=== PATIENT | female | born 1945 | race Hispanic/Latino ===

== ENCOUNTER 2018-01-11 15:32 | Emergency (ER) | payer OTHER ==
--- OUTSIDE RECORDS SUMMARY | 2018-01-11 15:34 | XMS REPORT ---
:1945 Author Organization e[employer] Care Team Providers Name Role Phone Dwain Plummer Provider Role Unavailable Allergies No Known Allergies Problems Problem Type Condition Code Onset Dates Condition Status Problem Osteoarthritis, multiple sites M15.9 Active Problem Unspecified rotator cuff tear or M75.100 Active rupture of unspecified shoulder, not specified as traumatic Problem Non-alcoholic fatty liver disease K76.0 Active Problem Hyperglycemia R73.9 Active Problem Carpal tunnel syndrome G56.00 Active Problem Hypertension I10 Active Problem Gastroesophageal reflux disease K21.9 Active Problem 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 substance or known physiological condition Problem Hypertriglyceridemia E78.1 Active Problem Hypokalemia E87.6 Active Assessment Hypertriglyceridemia E78.1 Active Assessment Hypertension I10 Active Assessment Osteoarthritis, multiple sites M15.9 Active Problem Allergic rhinitis, unspecified J30.9 Active Assessment Hyperglycemia R73.9 Active Problem Body mass index (BMI) of 40.0-44.9 Z68.41 Active in adult Assessment Non-alcoholic fatty liver disease K76.0 Active Problem Symptomatic postsurgical menopause E89.41 Active Medications Medication Code Code Instructions Start End Status Dosage System Date Date Losartan [facility] 49221905879 100-12.5 MG Active 1 tablet Potassium-HCTZ Oral Once a day Clarinex-D [address] [facility] 86478304482 2.5-120 MG MayAugust 04, Active 1 tablet Hour Orally every 12 2017 2018 hrs Fluticasone ND 62061450106 50 MCG/ACT Active 1 spray in Propionate Nasally Once a each day nostril Pantoprazole ND 05696943018 40 MG Orally Active 1 tablet Sodium Once a day ProAir HFA [facility] 21417012607 108 (90 Base) Active 2 puffs as MCG/ACT needed Inhalation every 6 hrs Carvedilol ND 49643910994 3.125 MG Oral Active 1 tab two times a day Metformin HCl ND 47659284561 500 MG Orally Active 1 tablet once a day with meals Potassium [facility] 94422713368 10 MEQ Orally Sept Active 1 tablet Chloride Vane ER Once a day 17, with food 2017 Oseltamivir [facility] 14904103034 75 MG Oral Active not Phosphate defined Belsomra [facility] 97755528584 5 MG Orally Active 1 tablet Once a day at bedtime as needed Cetirizine HCl [facility] 14576831199 10 MG Orally Active 1 tablet Once a day Results No Known Results Summary Purpose eClinicalWorks Submission
--- OUTSIDE RECORDS SUMMARY | 2018-01-11 15:34 | XMS REPORT ---
:1945 [email or web address] Care Team Providers Name Role Phone Dwain [...] E78.1 Active Problem Hypokalemia E87.6 Active Assessment Body mass index (BMI) of 40.0-44.9 Z68.41 Active in adult Assessment Hypertension I10 Active Assessment Allergic rhinitis, unspecified J30.9 Active Assessment Postnasal drip R09.82 Active Assessment Non-alcoholic fatty liver disease K76.0 Active Problem Allergic rhinitis, unspecified J30.9 Active Assessment Hypertriglyceridemia E78.1 Active Problem Body mass index (BMI) of 40.0-44.9 Z68.41 Active in adult Assessment Hyperglycemia R73.9 Active Problem Symptomatic postsurgical menopause E89.41 Active Medications Medication Code Code Instructions Start End Date Status Dosage System Date Potassium [facility] 56706530949 10 MEQ Orally Dec 02, Active 1 tablet Chloride Vane Once a day 2017 with food ER Metformin HCl ND 80030284191 500 MG Orally Active 1 tablet once a day with meals Pantoprazole ND 43076046220 40 MG Orally Active 1 tablet Sodium Once a day Carvedilol [facility] 25696848928 3.125 MG Oral Active 1 tab two times a day Belsomra [facility] 08905040612 5 MG Orally Active 1 tablet Once a day at bedtime as needed Cetirizine HCl ND 23069363947 10 MG Orally Active 1 tablet Once a day Losartan [facility] 43933643870 100-12.5 MG Active 1 tablet Potassium-HCTZ Oral Once a day ProAir HFA [facility] 37757742565 108 (90 Base) Active 2 puffs MCG/ACT as needed Inhalation every 6 hrs Klor-Con M10 [facility] 43646848582 10 MEQ May Inactive 1 EACH 2017 ONCE A DAY ORALLY Clarinex-D 12 [facility] 29331348258 2.5-120 MG MayAugust 04, Active 1 tablet Hour Orally every 12 2017 2018 hrs Oseltamivir [facility] 42117948714 75 MG Oral Active not Phosphate defined Fluticasone [facility] 59685050548 50 MCG/ACT May Active 1 spray Propionate Nasally Once a 2017 in each day nostril Results No Known Results Summary Purpose eClinicalWorks Submission
--- NOTE | 2018-01-11 16:02 | EDPHYS ---
Physician Documentation [facility] Name: Hortencia Freeman Age: 72 yrs Sex: Female : 1945 Arrival Date: 01/11/2018 Time: 15:34 Bed 4 Private MD: out of town, doctor ED Physician Jeff Shay HPI: 01/11 15:52 This 72 yrs old Female presents to ER via Ambulatory with complaints of Eye jr8 Injury. 15:52 The patient is experiencing pain. Onset: The symptoms/episode began/occurred acutely, jr8 today. Duration: the symptoms are continuous. Aggravated by nothing. Alleviated by nothing. Associated signs and symptoms: Pertinent positives: None. Patient wears glasses. Severity of symptoms: At their worst the symptoms were mild in the emergency department the symptoms are unchanged. The patient has not experienced similar symptoms in the past. The patient has not recently seen a physician. Patient stated that while shopping was accidently hit in left eye by clothes wrack from a little girl pushing it around. Denies falling backwards or hitting head or neck. No other trauma. Stated that it hit lower eye region but did not get her actual eyeball . Historical: - Allergies: 15:42 No Known Allergies; aj - Home Meds: 15:42 Metoprolol Tartrate Oral [Active]; Metformin Oral [Active]; aj - PMHx: 15:42 acid reflux; Diabetes - NIDDM; Hypertension; aj - PSHx: 15:42 Appendectomy; Hysterectomy; Carpal Tunnel Repair; shoulder; aj - Immunization history:: Adult Immunizations up to date. - Social history:: Smoking status: Patient/guardian denies using tobacco. - Ebola Screening: : Patient negative for fever greater than or equal to 101.5 degrees Fahrenheit, and additional compatible Ebola Virus Disease symptoms Patient denies exposure to infectious person Patient denies travel to an Ebola-affected area in the 21 days before illness onset No symptoms or risks identified at this time. ROS: 15:52 ENT: Negative for injury, pain, and discharge, Neck: Negative for injury, pain, and jr8 swelling, Cardiovascular: Negative for chest pain, palpitations, and edema, Respiratory: Negative for shortness of breath, cough, wheezing, and pleuritic chest pain, Abdomen/GI: Negative for abdominal pain, nausea, vomiting, diarrhea, and constipation, Back: Negative for injury and pain, MS/Extremity: Negative for injury and deformity, Skin: Negative for injury, rash, and discoloration, Neuro: Negative for headache, weakness, numbness, tingling, and seizure. 15:52 Eyes: Positive for pain, of the left lower eyelid. Exam: 15:58 Visual Acuity: I have reviewed the nursing documentation. jr8 15:58 Head/Face: Normocephalic, atraumatic. ENT: Nares patent. No nasal discharge, no septal abnormalities noted. Tympanic membranes are normal and external auditory canals are clear. Oropharynx with no redness, swelling, or masses, exudates, or evidence of obstruction, uvula midline. Mucous membranes moist. Neck: Trachea midline, no thyromegaly or masses palpated, and no cervical lymphadenopathy. Supple, full range of motion without nuchal rigidity, or vertebral point tenderness. No Meningismus. Cardiovascular: Regular rate and rhythm with a normal S1 and S2. No gallops, murmurs, or rubs. Normal PMI, no JVD. No pulse deficits. Respiratory: Lungs have equal breath sounds bilaterally, clear to auscultation and percussion. No rales, rhonchi or wheezes noted. No increased work of breathing, no retractions or nasal flaring. Abdomen/GI: Soft, non-tender, with normal bowel sounds. No distension or tympany. No guarding or rebound. No evidence of tenderness throughout. Back: No spinal tenderness. No costovertebral tenderness. Full range of motion. Skin: Warm, dry with normal turgor. Normal color with no rashes, no lesions, and no evidence of cellulitis. MS/ Extremity: Pulses equal, no cyanosis. Neurovascular intact. Full, normal range of motion. Neuro: Awake and alert, GCS 15, oriented to person, place, time, and situation. Cranial nerves II-XII grossly intact. Motor strength 5/5 in all extremities. Sensory grossly intact. Cerebellar exam normal. Normal gait. 15:58 Eyes: Periorbital structures: ecchymosis, that is mild, on the left lower eyelid, Pupils: equal, round, and reactive to light and accomodation, Extraocular movements: intact throughout, Conjunctiva: normal, Corneas: are normal, no evidence of abrasion, no foreign body, Sclera: no appreciated abnormality, Anterior chamber: normal, no hyphema, Lids and lashes: appear normal, Examination of the other eye reveals no obvious gross abnormality. Vital Signs: 15:42 BP 163 / 84; Pulse 76; Resp 16; Temp 98.2; Pulse Ox 97% on R/A; Weight 101.6 kg; Height aj 5 ft. 4 in. (162.56 cm); 15:42 Body Mass Index 38.45 (101.60 kg, 162.56 cm) Visual Acuity: 15:58 Left Eye Visual acuity 20/70, Pupil size 3 mm, Normal, React To Light; Right Eye Visual jb1 acuity 20/70, Pupil size 3 mm, Normal, React To Light; Without Lenses; MDM: 15:44 Patient medically screened. jr8 15:58 Data reviewed: vital signs, nurses notes, and as a result, I will discharge patient. jr8 Data interpreted: Pulse oximetry: on room air is 97 %. Interpretation: normal. Counseling: I had a detailed discussion with the patient and/or guardian regarding: the historical points, exam findings, and any diagnostic results supporting the discharge/admit diagnosis, the need for outpatient follow up, an opthalmologist, to return to the emergency department if symptoms worsen or persist or if there are any questions or concerns that arise at home. Administered Medications: No medications were administered Disposition: 18:01 Co-signature as Attending Physician, Jeff Shay MD. Disposition: 01/11/18 16:01 Discharged to Home. Impression: Contusion left infraorbital region . - Condition is Stable. - Discharge Instructions: Eye Contusion, Facial or Scalp Contusion. - Medication Reconciliation Form, Thank You Letter, Antibiotic Education, Prescription Opioid Use form. - Follow up: Ayad Jamison MD; When: As needed; Reason: If symptoms return, Recheck today's complaints, Continuance of care, Re-evaluation by your physician. - Problem is new. - Symptoms have improved. Signatures: Taina Prado RN RN aj Roszak, Josh, PA PA jr8 Bahman Hilton RN RN jl7 Jeff Shay MD MD Corrections: (The following items were deleted from the chart) 16:43 16:01 01/11/2018 16:01 Discharged to Home. Impression: Contusion left infraorbital jl7 region . Condition is Stable. Forms are Medication Reconciliation Form, Thank You Letter, Antibiotic Education, Prescription Opioid Use. Follow up: Ayad Jamison; When: As needed; Reason: If symptoms return, Recheck today's complaints, Continuance of care, Re-evaluation by your physician. Problem is new. Symptoms have improved. jr8
--- NOTE | 2018-01-11 16:02 | ER ---
Nurse's Notes [facility] Name: Hortencia Freeman Age: 72 yrs Sex: Female : 1945 Arrival Date: 01/11/2018 Time: 15:34 Bed 4 Private MD: out of town, doctor Diagnosis: Contusion left infraorbital region Presentation: 01/11 15:40 Presenting complaint: Patient states: Hit in left eye with metal rack at 1500 today aj while at [employer]. Denies LOC, reports blurred vision in left eye. Bruising noted. Reports minor pain. Transition of care: patient was not received from another setting of care. Mechanism of Injury: blunt trauma. Onset of symptoms was January 11, 2018. Risk Assessment: Do you want to hurt yourself or someone else? Patient reports no desire to harm self or others. Initial Sepsis Screen: Does the patient meet any 2 criteria? No. Patient's initial sepsis screen is negative. Does the patient have a suspected source of infection? No. Patient's initial sepsis screen is negative. Care prior to arrival: None. 15:40 Method Of Arrival: Ambulatory 15:40 Acuity: PROMISE 2 Triage Assessment: 15:42 General: Appears in no apparent distress. comfortable, Behavior is calm, cooperative, aj appropriate for age. Pain: Complains of pain in left eye. EENT: Eyes bruising to left lower lid. Neuro: Level of Consciousness is awake, alert, obeys commands, Oriented to person, place, time, situation, Appropriate for age. Respiratory: Airway is patent Respiratory effort is even, unlabored, Respiratory pattern is regular, symmetrical. Derm: Skin is intact, is healthy with good turgor, Skin is pink, warm \T\ dry. normal. Historical: - Allergies: 15:42 No Known Allergies; aj - Home Meds: 15:42 Metoprolol Tartrate Oral [Active]; Metformin Oral [Active]; aj - PMHx: 15:42 acid reflux; Diabetes - NIDDM; Hypertension; aj - PSHx: 15:42 Appendectomy; Hysterectomy; Carpal Tunnel Repair; shoulder; aj - Immunization history:: Adult Immunizations up to date. - Social history:: Smoking status: Patient/guardian denies using tobacco. - Ebola Screening: : Patient negative for fever greater than or equal to 101.5 degrees Fahrenheit, and additional compatible Ebola Virus Disease symptoms Patient denies exposure to infectious person Patient denies travel to an Ebola-affected area in the 21 days before illness onset No symptoms or risks identified at this time. Screenin:15 Abuse screen: Denies threats or abuse. Denies injuries from another. Nutritional jl7 screening: No deficits noted. Tuberculosis screening: No symptoms or risk factors identified. Fall Risk None identified. Assessment: 16:15 General: Appears in no apparent distress. uncomfortable, Behavior is calm, cooperative. jl7 Pain: Complains of pain in left eye. Neuro: Level of Consciousness is awake, alert, obeys commands, Oriented to person, place, time, situation. Cardiovascular: Patient's skin is warm and dry. Respiratory: Airway is patent Respiratory effort is even, unlabored, Respiratory pattern is regular, symmetrical. EENT: Sclera/Cornea are reddened in left eye. Vital Signs: 15:42 BP 163 / 84; Pulse 76; Resp 16; Temp 98.2; Pulse Ox 97% on R/A; Weight 101.6 kg; Height aj 5 ft. 4 in. (162.56 cm); 15:42 Body Mass Index 38.45 (101.60 kg, 162.56 cm) aj Visual Acuity: 15:58 Left Eye Visual acuity 20/70, Pupil size 3 mm, Normal, React To Light; Right Eye Visual jb1 acuity 20/70, Pupil size 3 mm, Normal, React To Light; Without Lenses; ED Course: 15:34 Patient arrived in ED. mr 15:34 out of town, doctor is Private Physician. mr 15:41 Triage completed. aj 15:42 Arm band placed on right wrist. Patient placed in an exam room. aj 15:44 Mynor Jiménez PA is PHCP. jr8 15:44 Jeff Shay MD is Attending Physician. jr8 16:01 Ayad Jamison MD is Referral Physician. jr8 16:15 Patient has correct armband on for positive identification. Bed in low position. Call jl7 light in reach. Side rails up X 1. 16:37 Bahman Hilton, DONNA is Primary Nurse. jl7 16:42 No provider procedures requiring assistance completed. Patient did not have IV access jl7 during this emergency room visit. Administered Medications: No medications were administered Outcome: 16:01 Discharge ordered by . radha 16:42 Discharged to home ambulatory. jl7 16:42 Condition: stable 16:42 Discharge instructions given to patient, Instructed on discharge instructions, follow up and referral plans. Demonstrated understanding of instructions, follow-up care. 16:43 Patient left the ED. jl7 Signatures: Boni Siddiqui jb1 Taina Prado RN RN aj Rivera, Mary mr Roszak, Josh, PA PA jr8 Bahman Hilton RN RN jl7
== END 2018-01-11 16:43 | disposition home or self-care (01) ==
LOC: ER 15:32
DX: S00.12XA Contusion of left eyelid and periocular area, initial encounter (principal); W22.8XXA Striking against or struck by other objects, initial encounter; Y93.89 Activity, other specified; Y92.9 Unspecified place or not applicable; I10 Essential (primary) hypertension; E11.9 Type 2 diabetes mellitus without complications
CPT/HCPCS: 99282

== ENCOUNTER 2022-04-24 11:21 | Emergency (ER) | payer OTHER ==
--- OUTSIDE RECORDS SUMMARY | 2022-04-24 11:26 | XMS REPORT | Continuity of Care Document ---
:1945 Author Organization [facility] t Address [address] [place] [address] Care Team Providers Name Role Phone Waldemar Gillette Attending Clinician Unavailable Valdo Vivas Attending Clinician Unavailable Mara Driver Attending Clinician Unavailable Payers Payer Name Policy Type Policy Number Effective Date Expiration Date S ource [facility] [id number] 2010 Common 00:00:00 [facility] [place] [address] [id number] [facility] [place] [address] [id number] Common [facility] MEDICARE NOVITAS [id number] 2010 Common 00:00:00 Spirit [facility] MEDICARE NOVITAS [id number] 2010 Common 00:00:00 [facility] [place] [address] [id number] Common [facility] [place] Problems Condition Condition Condition Status Onset Resolution Last Treating Co mments Source Name Details Category Date Date Treatment Clinician Date [id number] Leukocytos Problem Co mmon is, Spirit unspecifie - CHI d type [facility] [id number] Acute Problem Common left-sided Spirit low back - CHI pain with St leftsided [facility] [id number] Hypercalce Problem Com mon benny Spirit - [facility] Gastroesop Gastroesop Problem C elzbieta hageal hageal Spirit reflux reflux - CHI disease disease [facility] Psychophys Other Problem Commo n iologic insomnia Spirit insomnia not due to - CH I a [facility] or known [facility] physiolog[facility] Center jb condition Hypertrigl Hypertrigl Problem C elzbieta yceridemia yceridemia loree [facility] Hypokalemi Hypokalemi Problem C omemi a a Spirit - [facility] Hyperglyce Hyperglyce Problem C ommon benny benny Spirit [facility] Carpal Carpal Problem Common tunnel tunnel Spirit syndrome syndrome - [facility] [id number] Other Problem Common chronic Spirit pain [facility] 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 unspecifie Medica d [facility] shoulder, not specified as traumatic [id number] Pain in Problem Common right knee [facility] [id number] Pain in Problem Comm on left knee [facility] [id number] Peripheral Problem Co mmon edema [facility] Abnormal Abnormal Problem Commo n mammogram mammogram Sp[facility] Allergies, Adverse Reactions, Alerts This patient has no known allergies or adverse reactions. Social History Social Habit Start Date Stop Date Quantity Comments Source History of Tobacco Use Co mmon [facility] Sex Assigned At Com mon [facility] Smoking Status Start Date Stop Date Source Never Smoker Common [facility] Medications Ordered Filled Start Stop Current Ordering Indication Dosage Frequency Signature Comments Components Source Medication Medication Date Date Medication? Clinician (SIG) Name Name Ketorolac Ketorolac 2022-0 No 60mg Com mon 15mg 15mg 03-22 00:00: - [facility] Ketorolac Ketorolac 2022-0 No 60mg Com mon 15mg 15mg 03-22 00:00: - [facility] Ketorolac Ketorolac 2022-0 No 60mg Com mon 15mg 15mg 03-22 00:00: - [facility] 2021-03 No 40mg Common (Triamcinol (Triamcinol 1-10 S pirit one) one) 00:00: - [facility] 2021-03 No 40mg Common (Triamcinol (Triamcinol 1-10 S pirit one) one) 00:00: - [facility] 2021-03 No 40mg Common (Triamcinol (Triamcinol 1-10 S pirit one) one) 00:00: - [facility] No 40mg Common (Triamcinol (Triamcinol 1-10 S pirit one) one) 00:00: - [facility] 2021-03 No 40mg Common (Triamcinol (Triamcinol 1-10 S pirit one) one) 00:00: - [facility] Citalopram Citalopram 2020-03 No 1{table QD Citalopram Hydrobromid Hydrobromid 2-06 t} Hydrobromi e 10 MG e 10 MG 00:00: de 10 MG 00 Citalopram Citalopram 1 No 1{table QD Citalopram Hydrobromid Hydrobromid 2-06 t} Hydrobromi e 10 MG e 10 MG 00:00: de 10 MG 00 Cyclobenzap Cyclobenzap 2020-0 No 1{table QD Cyclobenza rine HCl 5 rine HCl 5 8-25 t_at_be jose HCl MG MG 00:00: dtime_a 5 MG 00 s_neede d} Cyclobenzap Cyclobenzap 2020-0 No 1{table QD Cyclobenza rine HCl 5 rine HCl 5 8-25 t_at_be jose HCl MG MG 00:00: dtime_a 5 MG 00 s_neede d} Cyclobenzap Cyclobenzap 2020-0 No 1{table QD Cyclobenza rine HCl 5 rine HCl 5 8-25 t_at_be jose HCl MG MG 00:00: dtime_a 5 MG 00 s_neede d} Cyclobenzap Cyclobenzap 2020-0 No 1{table QD rine HCl 5 rine HCl 5 8-25 t_at_be MG MG 00:00: dtime_a 00 s_neede d} Cyclobenzap Cyclobenzap 2020-0 No 1{table QD Cyclobenza rine HCl 5 rine HCl 5 8-25 t_at_be jose HCl MG MG 00:00: dtime_a 5 MG 00 s_neede d} Cyclobenzap Cyclobenzap 2020-0 No 1{table QD Cyclobenza rine HCl 5 rine HCl 5 8-25 t_at_be jose HCl MG MG 00:00: dtime_a 5 MG 00 s_neede d} Kenalog Kenalog 2020-0 No 40mg Common (Triamcinol (Triamcinol 8-25 S pirit one) one) 00:00: - CHI 00 [facility] Cyclobenzap Cyclobenzap 2020-0 No 1{table QD Cyclobenza rine HCl 5 rine HCl 5 8-25 t_at_be jose HCl MG MG 00:00: dtime_a 5 MG 00 s_neede d} Kenalog Kenalog 0 No 40mg Common (Triamcinol (Triamcinol 8-25 S pirit one) one) 00:00: - CHI 00 [facility] Cyclobenzap Cyclobenzap No 1{table QD Cyclobenza rine HCl 5 rine HCl 5 8-25 t_at_be jose HCl MG MG 00:00: dtime_a 5 MG 00 s_neede d} Kenalog Kenalog No 40mg Common (Triamcinol (Triamcinol 8-25 S pirit one) one) 00:00: - CHI 00 [facility] Cyclobenzap Cyclobenzap No 1{table QD Cyclobenza rine HCl 5 rine HCl 5 8-25 t_at_be jose HCl MG MG 00:00: dtime_a 5 MG 00 s_neede d} Kenalog Kenalog 0 No 40mg Common (Triamcinol (Triamcinol 8-25 S pirit one) one) 00:00: - CHI 00 [facility] Cyclobenzap Cyclobenzap No 1{table QD Cyclobenza rine HCl 5 rine HCl 5 8-25 t_at_be jose HCl MG MG 00:00: dtime_a 5 MG 00 s_neede d} Kenalog Kenalog No 40mg Common (Triamcinol (Triamcinol 8-25 S pirit one) one) 00:00: - CHI 00 [facility] Cyclobenzap Cyclobenzap No 1{table QD Cyclobenza rine HCl 5 rine HCl 5 8-25 t_at_be jose HCl MG MG 00:00: dtime_a 5 MG 00 s_neede d} Kenalog Kenalog 0 No 40mg Common (Triamcinol (Triamcinol 8-25 S pirit one) one) 00:00: - CHI 00 [facility] Kenalog Kenalog No 40mg Common (Triamcinol (Triamcinol 8-25 S pirit one) one) 00:00: - CHI 00 [facility] Kenalog Kenalog No 40mg Common (Triamcinol (Triamcinol 8-25 S pirit one) one) 00:00: - CHI [facility] Steffen Johnsonalog No 40mg Common (Triamcinol (Triamcinol 8-25 S pirit one) one) 00:00: [facility] Steffen Kenalog No 40mg Common (Triamcinol (Triamcinol 8-25 S pirit one) one) 00:00: - [facility] Cyclobenzap Cyclobenzap No 1{table QD Cyclobenza rine HCl 5 rine HCl 5 8-25 t_at_be jose HCl MG MG 00:00: dtime_a 5 MG 00 s_neede d} Losartan Losartan Yes Mara 1 tablet Common Potassium Potassium 3-16 [place] Spirit 00:00: - [facility] Furosemide Furosemide Yes Mara 1 tablet Common 3-16 Millender Spirit 00:00: - [facility] Carvedilol Carvedilol Yes Mara 1 tablet Common Millender [facility] Naproxen Naproxen Yes Mara 1 tablet Co mmon Millender with food Spiri t or milk as - CHI needed [facility] Amlodipine Amlodipine Yes Mara 1 tablet Common Besylate Besylate Millender [facility] Metformin Metformin Yes Mara 1 tablet Common HCl HCl Millender with meals Spir it - [facility] Pantoprazol Pantoprazol Yes Mara 1 tablet Common e Sodium e Sodium Millender [facility] amLODIPine amLODIPine No amLODIPine Besylate 5 Besylate 5 Besylate 5 MG MG MG Potassium Potassium No Potassium Chloride Chloride Chloride Vane ER 10 Vane ER 10 Vane ER 10 MEQ MEQ MEQ Furosemide Furosemide No Furosemide 20 MG 20 MG 20 MG Magnesium Magnesium No 1{table QD Magnesium 250 MG 250 MG t_with_ 250 MG a_meal} Carvedilol Carvedilol No Carvedilol 3.125 MG 3.125 MG 3.125 MG metFORMIN metFORMIN No metFORMIN HCl ER 500 HCl ER 500 HCl ER 500 MG MG MG Pantoprazol Pantoprazol No 1{table QD Pantoprazo e Sodium 20 e Sodium 20 t} le Sodium MG MG 20 MG Furosemide Furosemide No 1{table Furosemide 20 MG 20 MG t} 20 MG Furosemide Furosemide No Furosemide 20 MG 20 MG 20 MG Carvedilol Carvedilol No 1{table BID Carvedilol 3.125 MG 3.125 MG t} 3.125 MG amLODIPine amLODIPine No 1{table QD amLODIPine Besylate 5 Besylate 5 t} Besylate 5 MG MG MG Losartan Losartan No 1{table QD Losartan Potassium Potassium t} Potassium 100 MG 100 MG 100 MG Potassium Potassium No Potassium Chloride Chloride Chloride Vane ER 10 Vane ER 10 Vane ER 10 MEQ MEQ MEQ Magnesium Magnesium No 1{table QD Magnesium 250 MG 250 MG t_with_ 250 MG a_meal} amLODIPine amLODIPine No amLODIPine Besylate 5 Besylate 5 Besylate 5 MG MG MG Vitamin D3 Vitamin D3 No 1{table QD Vitamin D3 25 MCG 25 MCG t} 25 MCG (1000 UT) (1000 UT) (1000 UT) metFORMIN metFORMIN No 1{table BID metFORMIN HCl ER 500 HCl ER 500 t} HCl ER 500 MG MG MG Carvedilol Carvedilol No Carvedilol 3.125 MG 3.125 MG 3.125 MG Naproxen Naproxen No BID Naproxen 375 MG 375 MG 375 MG metFORMIN metFORMIN No metFORMIN HCl ER 500 HCl ER 500 HCl ER 500 MG MG MG Furosemide Furosemide No 1{table Furosemide 20 MG 20 MG t} 20 MG Furosemide Furosemide No Furosemide 20 MG 20 MG 20 MG Carvedilol Carvedilol No 1{table BID Carvedilol 3.125 MG 3.125 MG t} 3.125 MG amLODIPine amLODIPine No amLODIPine Besylate 5 Besylate 5 Besylate 5 MG MG MG Vitamin D3 Vitamin D3 No 1{table QD Vitamin D3 25 MCG 25 MCG t} 25 MCG (1000 UT) (1000 UT) (1000 UT) Losartan Losartan No 1{table QD Losartan Potassium Potassium t} Potassium 100 MG 100 MG 100 MG Naproxen Naproxen No BID Naproxen 375 MG 375 MG 375 MG Carvedilol Carvedilol No Carvedilol 3.125 MG 3.125 MG 3.125 MG Magnesium Magnesium No 1{table QD Magnesium 250 MG 250 MG t_with_ 250 MG a_meal} metFORMIN metFORMIN No 1{table BID metFORMIN HCl ER 500 HCl ER 500 t} HCl ER 500 MG MG MG Potassium Potassium No Potassium Chloride Chloride Chloride Vane ER 10 Vane ER 10 Vane ER 10 MEQ MEQ MEQ Pantoprazol Pantoprazol No 1{table QD Pantoprazo e Sodium 20 e Sodium 20 t} le Sodium MG MG 20 MG Furosemide Furosemide No 1{table 20 MG 20 MG t} Furosemide Furosemide No 20 MG 20 MG amLODIPine amLODIPine No Besylate 5 Besylate 5 MG MG Magnesium Magnesium No 1{table QD 250 MG 250 MG t_with_ a_meal} Carvedilol Carvedilol No 3.125 MG 3.125 MG Potassium Potassium No Chloride Chloride Vane ER 10 Vane ER 10 MEQ MEQ metFORMIN metFORMIN No HCl ER 500 HCl ER 500 MG MG Carvedilol Carvedilol No 1{table BID 3.125 MG 3.125 MG t} amLODIPine amLODIPine No 1{table QD Besylate 5 Besylate 5 t} MG MG Naproxen Naproxen No BID 375 MG 375 MG Citalopram Citalopram No 1{table QD Hydrobromid Hydrobromid t} e 10 MG e 10 MG metFORMIN metFORMIN No 1{table BID HCl ER 500 HCl ER 500 t} MG MG Pantoprazol Pantoprazol No 1{table QD e Sodium 20 e Sodium 20 t} MG MG Vitamin D3 Vitamin D3 No 1{table QD 25 MCG 25 MCG t} (1000 UT) (1000 UT) Losartan Losartan No 1{table QD Potassium Potassium t} 100 MG 100 MG Losartan Losartan No 1{table QD Losartan Potassium Potassium t} Potassium 100 MG 100 MG 100 MG Carvedilol Carvedilol No Carvedilol 3.125 MG 3.125 MG 3.125 MG Pantoprazol Pantoprazol No 1{table QD Pantoprazo e Sodium 20 e Sodium 20 t} le Sodium MG MG 20 MG metFORMIN metFORMIN No metFORMIN HCl ER 500 HCl ER 500 HCl ER 500 MG MG MG Potassium Potassium No Potassium Chloride Chloride Chloride Vane ER 10 Vane ER 10 Vane ER 10 MEQ MEQ MEQ amLODIPine amLODIPine No 1{table QD amLODIPine Besylate 5 Besylate 5 t} Besylate 5 MG MG MG amLODIPine amLODIPine No amLODIPine Besylate 5 Besylate 5 Besylate 5 MG MG MG Magnesium Magnesium No 1{table QD Magnesium 250 MG 250 MG t_with_ 250 MG a_meal} metFORMIN metFORMIN No 1{table BID metFORMIN HCl ER 500 HCl ER 500 t} HCl ER 500 MG MG MG Vitamin D3 Vitamin D3 No 1{table QD Vitamin D3 25 MCG 25 MCG t} 25 MCG (1000 UT) (1000 UT) (1000 UT) Carvedilol Carvedilol No 1{table BID Carvedilol 3.125 MG 3.125 MG t} 3.125 MG Furosemide Furosemide No Furosemide 20 MG 20 MG 20 MG Naproxen Naproxen No BID Naproxen 375 MG 375 MG 375 MG Citalopram Citalopram No 1{table QD Citalopram Hydrobromid Hydrobromid t} Hydrobromi e 10 MG e 10 MG de 10 MG Pantoprazol Pantoprazol No 1{table QD Pantoprazo e Sodium 20 e Sodium 20 t} le Sodium MG MG 20 MG Losartan Losartan No 1{table QD Losartan Potassium Potassium t} Potassium 100 MG 100 MG 100 MG Carvedilol Carvedilol No Carvedilol 3.125 MG 3.125 MG 3.125 MG Magnesium Magnesium No 1{table QD Magnesium 250 MG 250 MG t_with_ 250 MG a_meal} Potassium Potassium No Potassium Chloride Chloride Chloride Vane ER 10 Vane ER 10 Vane ER 10 MEQ MEQ MEQ metFORMIN metFORMIN No 1{table BID metFORMIN HCl ER 500 HCl ER 500 t} HCl ER 500 MG MG MG Naproxen Naproxen No BID Naproxen 375 MG 375 MG 375 MG Vitamin D3 Vitamin D3 No 1{table QD Vitamin D3 25 MCG 25 MCG t} 25 MCG (1000 UT) (1000 UT) (1000 UT) Furosemide Furosemide No Furosemide 20 MG 20 MG 20 MG metFORMIN metFORMIN No metFORMIN HCl ER 500 HCl ER 500 HCl ER 500 MG MG MG Carvedilol Carvedilol No 1{table BID Carvedilol 3.125 MG 3.125 MG t} 3.125 MG Citalopram Citalopram No 1{table QD Citalopram Hydrobromid Hydrobromid t} Hydrobromi e 10 MG e 10 MG de 10 MG amLODIPine amLODIPine No amLODIPine Besylate 5 Besylate 5 Besylate 5 MG MG MG amLODIPine amLODIPine No 1{table QD amLODIPine Besylate 5 Besylate 5 t} Besylate 5 MG MG MG Carvedilol Carvedilol No 1{table BID Carvedilol 3.125 MG 3.125 MG t} 3.125 MG Losartan Losartan No 1{table QD Losartan Potassium Potassium t} Potassium 100 MG 100 MG 100 MG amLODIPine amLODIPine No 1{table QD amLODIPine Besylate 5 Besylate 5 t} Besylate 5 MG MG MG Pantoprazol Pantoprazol No 1{table QD Pantoprazo e Sodium 20 e Sodium 20 t} le Sodium MG MG 20 MG metFORMIN metFORMIN No 1{table BID metFORMIN HCl ER 500 HCl ER 500 t} HCl ER 500 MG MG MG Furosemide Furosemide No Furosemide 20 MG 20 MG 20 MG Potassium Potassium No Potassium Chloride Chloride Chloride Vane ER 10 Vane ER 10 Vane ER 10 MEQ MEQ MEQ metFORMIN metFORMIN No metFORMIN HCl ER 500 HCl ER 500 HCl ER 500 MG MG MG amLODIPine amLODIPine No amLODIPine Besylate 5 Besylate 5 Besylate 5 MG MG MG Citalopram Citalopram No Citalopram Hydrobromid Hydrobromid Hydrobromi e 10 MG e 10 MG de 10 MG Carvedilol Carvedilol No Carvedilol 3.125 MG 3.125 MG 3.125 MG Magnesium Magnesium No 1{table QD Magnesium 250 MG 250 MG t_with_ 250 MG a_meal} Furosemide Furosemide No 1{table Furosemide 20 MG 20 MG t} 20 MG Citalopram Citalopram No 1{table QD Citalopram Hydrobromid Hydrobromid t} Hydrobromi e 10 MG e 10 MG de 10 MG Vitamin D3 Vitamin D3 No 1{table QD Vitamin D3 25 MCG 25 MCG t} 25 MCG (1000 UT) (1000 UT) (1000 UT) Naproxen Naproxen No BID Naproxen 375 MG 375 MG 375 MG amLODIPine amLODIPine No 1{table QD amLODIPine Besylate 5 Besylate 5 t} Besylate 5 MG MG MG Citalopram Citalopram No Citalopram Hydrobromid Hydrobromid Hydrobromi e 10 MG e 10 MG de 10 MG amLODIPine amLODIPine No amLODIPine Besylate 5 Besylate 5 Besylate 5 MG MG MG Magnesium Magnesium No 1{table QD Magnesium 250 MG 250 MG t_with_ 250 MG a_meal} Losartan Losartan No 1{table QD Losartan Potassium Potassium t} Potassium 100 MG 100 MG 100 MG Vitamin D3 Vitamin D3 No 1{table QD Vitamin D3 25 MCG 25 MCG t} 25 MCG (1000 UT) (1000 UT) (1000 UT) metFORMIN metFORMIN No metFORMIN HCl ER 500 HCl ER 500 HCl ER 500 MG MG MG Furosemide Furosemide No 1{table Furosemide 20 MG 20 MG t} 20 MG Carvedilol Carvedilol No Carvedilol 3.125 MG 3.125 MG 3.125 MG Losartan Losartan No Losartan Potassium Potassium Potassium 50 MG 50 MG 50 MG Pantoprazol Pantoprazol No Pantoprazo e Sodium 20 e Sodium 20 le Sodium MG MG 20 MG Furosemide Furosemide No Furosemide 20 MG 20 MG 20 MG Naproxen Naproxen No BID Naproxen 375 MG 375 MG 375 MG Potassium Potassium No Potassium Chloride Chloride Chloride Vane ER 10 Vane ER 10 Vane ER 10 MEQ MEQ MEQ Citalopram Citalopram No Citalopram Hydrobromid Hydrobromid Hydrobromi e 10 MG e 10 MG de 10 MG Losartan Losartan No Losartan Potassium Potassium Potassium 50 MG 50 MG 50 MG Potassium Potassium No Potassium Chloride Chloride Chloride Vane ER 10 Vane ER 10 Vane ER 10 MEQ MEQ MEQ amLODIPine amLODIPine No amLODIPine Besylate 5 Besylate 5 Besylate 5 MG MG MG Losartan Losartan No 1{table QD Losartan Potassium Potassium t} Potassium 100 MG 100 MG 100 MG Magnesium Magnesium No 1{table QD Magnesium 250 MG 250 MG t_with_ 250 MG a_meal} amLODIPine amLODIPine No 1{table QD amLODIPine Besylate 5 Besylate 5 t} Besylate 5 MG MG MG Furosemide Furosemide No 1{table Furosemide 20 MG 20 MG t} 20 MG Carvedilol Carvedilol No 1{table BID Carvedilol 3.125 MG 3.125 MG t} 3.125 MG Pantoprazol Pantoprazol No 1{table QD Pantoprazo e Sodium 20 e Sodium 20 t} le Sodium MG MG 20 MG Carvedilol Carvedilol No Carvedilol 3.125 MG 3.125 MG 3.125 MG Naproxen Naproxen No BID Naproxen 375 MG 375 MG 375 MG Citalopram Citalopram No 1{table QD Citalopram Hydrobromid Hydrobromid t} Hydrobromi e 10 MG e 10 MG de 10 MG Furosemide Furosemide No Furosemide 20 MG 20 MG 20 MG Pantoprazol Pantoprazol No Pantoprazo e Sodium 20 e Sodium 20 le Sodium MG MG 20 MG metFORMIN metFORMIN No 1{table BID metFORMIN HCl ER 500 HCl ER 500 t} HCl ER 500 MG MG MG Vitamin D3 Vitamin D3 No 1{table QD Vitamin D3 25 MCG 25 MCG t} 25 MCG (1000 UT) (1000 UT) (1000 UT) metFORMIN metFORMIN No metFORMIN HCl ER 500 HCl ER 500 HCl ER 500 MG MG MG Citalopram Citalopram No 1{table QD Citalopram Hydrobromid Hydrobromid t} Hydrobromi e 10 MG e 10 MG de 10 MG Pantoprazol Pantoprazol No 1{table QD Pantoprazo e Sodium 20 e Sodium 20 t} le Sodium MG MG 20 MG Furosemide Furosemide No Furosemide 20 MG 20 MG 20 MG Losartan Losartan No 1{table QD Losartan Potassium Potassium t} Potassium 100 MG 100 MG 100 MG metFORMIN metFORMIN No metFORMIN HCl ER 500 HCl ER 500 HCl ER 500 MG MG MG amLODIPine amLODIPine No amLODIPine Besylate 5 Besylate 5 Besylate 5 MG MG MG Citalopram Citalopram No Citalopram Hydrobromid Hydrobromid Hydrobromi e 10 MG e 10 MG de 10 MG Magnesium Magnesium No 1{table QD Magnesium 250 MG 250 MG t_with_ 250 MG a_meal} Naproxen Naproxen No BID Naproxen 375 MG 375 MG 375 MG amLODIPine amLODIPine No 1{table QD amLODIPine Besylate 5 Besylate 5 t} Besylate 5 MG MG MG Pantoprazol Pantoprazol No Pantoprazo e Sodium 20 e Sodium 20 le Sodium MG MG 20 MG Propranolol Propranolol No 1{table BID Propranolo HCl 10 MG HCl 10 MG t} l HCl 10 MG metFORMIN metFORMIN No 1{table BID metFORMIN HCl ER 500 HCl ER 500 t} HCl ER 500 MG MG MG Vitamin D3 Vitamin D3 No 1{table QD Vitamin D3 25 MCG 25 MCG t} 25 MCG (1000 UT) (1000 UT) (1000 UT) Furosemide Furosemide No 1{table Furosemide 20 MG 20 MG t} 20 MG Potassium Potassium No Potassium Chloride Chloride Chloride Vane ER 10 Vane ER 10 Vane ER 10 MEQ MEQ MEQ Citalopram Citalopram No 1{table QD Citalopram Hydrobromid Hydrobromid t} Hydrobromi e 10 MG e 10 MG de 10 MG Losartan Losartan No Losartan Potassium Potassium Potassium 100 MG 100 MG 100 MG Naproxen Naproxen No BID Naproxen 375 MG 375 MG 375 MG Furosemide Furosemide No Furosemide 20 MG 20 MG 20 MG amLODIPine amLODIPine No 1{table QD amLODIPine Besylate 5 Besylate 5 t} Besylate 5 MG MG MG metFORMIN metFORMIN No metFORMIN HCl ER 500 HCl ER 500 HCl ER 500 MG MG MG amLODIPine amLODIPine No amLODIPine Besylate 5 Besylate 5 Besylate 5 MG MG MG Citalopram Citalopram No Citalopram Hydrobromid Hydrobromid Hydrobromi e 10 MG e 10 MG de 10 MG metFORMIN metFORMIN No 1{table BID metFORMIN HCl ER 500 HCl ER 500 t} HCl ER 500 MG MG MG Magnesium Magnesium No 1{table QD Magnesium 250 MG 250 MG t_with_ 250 MG a_meal} Furosemide Furosemide No 1{table Furosemide 20 MG 20 MG t} 20 MG Potassium Potassium No Potassium Chloride Chloride Chloride Vane ER 10 Vane ER 10 Vane ER 10 MEQ MEQ MEQ Pantoprazol Pantoprazol No Pantoprazo e Sodium 20 e Sodium 20 le Sodium MG MG 20 MG Vitamin D3 Vitamin D3 No 1{table QD Vitamin D3 25 MCG 25 MCG t} 25 MCG (1000 UT) (1000 UT) (1000 UT) Propranolol Propranolol No 1{table BID Propranolo HCl 10 MG HCl 10 MG t} l HCl 10 MG Pantoprazol Pantoprazol No 1{table QD Pantoprazo e Sodium 20 e Sodium 20 t} le Sodium MG MG 20 MG amLODIPine amLODIPine No 1{table QD amLODIPine Besylate 5 Besylate 5 t} Besylate 5 MG MG MG Losartan Losartan No Losartan Potassium Potassium Potassium 100 MG 100 MG 100 MG amLODIPine amLODIPine No amLODIPine Besylate 5 Besylate 5 Besylate 5 MG MG MG Propranolol Propranolol No 1{table BID Propranolo HCl 10 MG HCl 10 MG t} l HCl 10 MG Naproxen Naproxen No BID Naproxen 375 MG 375 MG 375 MG Vitamin D3 Vitamin D3 No 1{table QD Vitamin D3 25 MCG 25 MCG t} 25 MCG (1000 UT) (1000 UT) (1000 UT) Magnesium Magnesium No 1{table QD Magnesium 250 MG 250 MG t_with_ 250 MG a_meal} Citalopram Citalopram No Citalopram Hydrobromid Hydrobromid Hydrobromi e 10 MG e 10 MG de 10 MG Pantoprazol Pantoprazol No 1{table QD Pantoprazo e Sodium 20 e Sodium 20 t} le Sodium MG MG 20 MG metFORMIN metFORMIN No metFORMIN HCl ER 500 HCl ER 500 HCl ER 500 MG MG MG Furosemide Furosemide No 1{table Furosemide 20 MG 20 MG t} 20 MG Furosemide Furosemide No Furosemide 20 MG 20 MG 20 MG Pantoprazol Pantoprazol No Pantoprazo e Sodium 20 e Sodium 20 le Sodium MG MG 20 MG Citalopram Citalopram No 1{table QD Citalopram Hydrobromid Hydrobromid t} Hydrobromi e 10 MG e 10 MG de 10 MG Cyclobenzap Cyclobenzap No 1{table QD Cyclobenza rine HCl 5 rine HCl 5 t_at_be jose HCl MG MG dtime_a 5 MG s_neede d} Potassium Potassium No Potassium Chloride Chloride Chloride Vane ER 10 Vane ER 10 Vane ER 10 MEQ MEQ MEQ metFORMIN metFORMIN No 1{table BID metFORMIN HCl ER 500 HCl ER 500 t} HCl ER 500 MG MG MG Vitamin D3 Vitamin D3 No 1{table QD Vitamin D3 25 MCG 25 MCG t} 25 MCG (1000 UT) (1000 UT) (1000 UT) Furosemide Furosemide No Furosemide 20 MG 20 MG 20 MG Losartan Losartan No Losartan Potassium Potassium Potassium 100 MG 100 MG 100 MG Citalopram Citalopram No 1{table QD Citalopram Hydrobromid Hydrobromid t} Hydrobromi e 10 MG e 10 MG de 10 MG metFORMIN metFORMIN No 1{table BID metFORMIN HCl ER 500 HCl ER 500 t} HCl ER 500 MG MG MG amLODIPine amLODIPine No 1{table QD amLODIPine Besylate 5 Besylate 5 t} Besylate 5 MG MG MG Potassium Potassium No Potassium Chloride Chloride Chloride Vane ER 10 Vane ER 10 Vane ER 10 MEQ MEQ MEQ Pantoprazol Pantoprazol No 1{table QD Pantoprazo e Sodium 20 e Sodium 20 t} le Sodium MG MG 20 MG Cyclobenzap Cyclobenzap No 1{table QD Cyclobenza rine HCl 5 rine HCl 5 t_at_be jose HCl MG MG dtime_a 5 MG s_neede d} Magnesium Magnesium No 1{table QD Magnesium 250 MG 250 MG t_with_ 250 MG a_meal} Propranolol Propranolol No 1{table BID Propranolo HCl 10 MG HCl 10 MG t} l HCl 10 MG Cyclobenzap Cyclobenzap No 1{table QD Cyclobenza rine HCl 5 rine HCl 5 t_at_be jose HCl MG MG dtime_a 5 MG s_neede d} Naproxen Naproxen No BID Naproxen 375 MG 375 MG 375 MG Furosemide Furosemide No 1{table Furosemide 20 MG 20 MG t} 20 MG amLODIPine amLODIPine No amLODIPine Besylate 5 Besylate 5 Besylate 5 MG MG MG Losartan Losartan No Losartan Potassium Potassium Potassium 100 MG 100 MG 100 MG Magnesium Magnesium No 1{table QD Magnesium 250 MG 250 MG t_with_ 250 MG a_meal} Furosemide Furosemide No Furosemide 20 MG 20 MG 20 MG Naproxen Naproxen No BID Naproxen 375 MG 375 MG 375 MG Citalopram Citalopram No 1{table QD Citalopram Hydrobromid Hydrobromid t} Hydrobromi e 10 MG e 10 MG de 10 MG Pantoprazol Pantoprazol No Pantoprazo e Sodium 20 e Sodium 20 le Sodium MG MG 20 MG Carvedilol Carvedilol No Carvedilol 3.125 MG 3.125 MG 3.125 MG Vitamin D3 Vitamin D3 No 1{table QD Vitamin D3 25 MCG 25 MCG t} 25 MCG (1000 UT) (1000 UT) (1000 UT) Cyclobenzap Cyclobenzap No 1{table QD Cyclobenza rine HCl 5 rine HCl 5 t_at_be ojse HCl MG MG dtime_a 5 MG s_neede d} Potassium Potassium No Potassium Chloride Chloride Chloride Vane ER 10 Vane ER 10 Vane ER 10 MEQ MEQ MEQ metFORMIN metFORMIN No metFORMIN HCl ER 500 HCl ER 500 HCl ER 500 MG MG MG Cyclobenzap Cyclobenzap No 1{table QD Cyclobenza rine HCl 5 rine HCl 5 t_at_be jose HCl MG MG dtime_a 5 MG s_neede d} Propranolol Propranolol No 1{table BID Propranolo HCl 10 MG HCl 10 MG t} l HCl 10 MG Furosemide Furosemide No 1{table Furosemide 20 MG 20 MG t} 20 MG Naproxen Naproxen No BID Naproxen 375 MG 375 MG 375 MG Cyclobenzap Cyclobenzap No 1{table QD Cyclobenza rine HCl 5 rine HCl 5 t_at_be jose HCl MG MG dtime_a 5 MG s_neede d} Cyclobenzap Cyclobenzap No 1{table QD Cyclobenza rine HCl 5 rine HCl 5 t_at_be jose HCl MG MG dtime_a 5 MG s_neede d} Citalopram Citalopram No Citalopram Hydrobromid Hydrobromid Hydrobromi e 10 MG e 10 MG de 10 MG Magnesium Magnesium No 1{table QD Magnesium 250 MG 250 MG t_with_ 250 MG a_meal} metFORMIN metFORMIN No metFORMIN HCl ER 500 HCl ER 500 HCl ER 500 MG MG MG Vitamin D3 Vitamin D3 No 1{table QD Vitamin D3 25 MCG 25 MCG t} 25 MCG (1000 UT) (1000 UT) (1000 UT) metFORMIN metFORMIN No 1{table BID metFORMIN HCl ER 500 HCl ER 500 t} HCl ER 500 MG MG MG Losartan Losartan No 1{table QD Losartan Potassium Potassium t} Potassium 100 MG 100 MG 100 MG amLODIPine amLODIPine No 1{table QD amLODIPine Besylate 5 Besylate 5 t} Besylate 5 MG MG MG amLODIPine amLODIPine No amLODIPine Besylate 5 Besylate 5 Besylate 5 MG MG MG Pantoprazol Pantoprazol No 1{table QD Pantoprazo e Sodium 20 e Sodium 20 t} le Sodium MG MG 20 MG Furosemide Furosemide No 1{table Furosemide 20 MG 20 MG t} 20 MG Carvedilol Carvedilol No Carvedilol 3.125 MG 3.125 MG 3.125 MG Losartan Losartan No Losartan Potassium Potassium Potassium 100 MG 100 MG 100 MG Propranolol Propranolol No 1{table BID Propranolo HCl 10 MG HCl 10 MG t} l HCl 10 MG Potassium Potassium No Potassium Chloride Chloride Chloride Vane ER 10 Vane ER 10 Vane ER 10 MEQ MEQ MEQ Citalopram Citalopram No 1{table QD Citalopram Hydrobromid Hydrobromid t} Hydrobromi e 10 MG e 10 MG de 10 MG Pantoprazol Pantoprazol No Pantoprazo e Sodium 20 e Sodium 20 le Sodium MG MG 20 MG Furosemide Furosemide No Furosemide 20 MG 20 MG 20 MG Potassium Potassium No Potassium Chloride Chloride Chloride Vane ER 10 Vane ER 10 Vane ER 10 MEQ MEQ MEQ Losartan Losartan No 1{table QD Losartan Potassium Potassium t} Potassium 100 MG 100 MG 100 MG Naproxen Naproxen No BID Naproxen 375 MG 375 MG 375 MG Vitamin D3 Vitamin D3 No 1{table QD Vitamin D3 25 MCG 25 MCG t} 25 MCG (1000 UT) (1000 UT) (1000 UT) Carvedilol Carvedilol No Carvedilol 3.125 MG 3.125 MG 3.125 MG metFORMIN metFORMIN No metFORMIN HCl ER 500 HCl ER 500 HCl ER 500 MG MG MG Magnesium Magnesium No 1{table QD Magnesium 250 MG 250 MG t_with_ 250 MG a_meal} Furosemide Furosemide No Furosemide 20 MG 20 MG 20 MG amLODIPine amLODIPine No amLODIPine Besylate 5 Besylate 5 Besylate 5 MG MG MG Pantoprazol Pantoprazol No 1{table QD Pantoprazo e Sodium 20 e Sodium 20 t} le Sodium MG MG 20 MG Pantoprazol Pantoprazol No 1{table QD Pantoprazo e Sodium 20 e Sodium 20 t} le Sodium MG MG 20 MG Losartan Losartan No 1{table QD Losartan Potassium Potassium t} Potassium 100 MG 100 MG 100 MG Naproxen Naproxen No BID Naproxen 375 MG 375 MG 375 MG Vitamin D3 Vitamin D3 No 1{table QD Vitamin D3 25 MCG 25 MCG t} 25 MCG (1000 UT) (1000 UT) (1000 UT) metFORMIN metFORMIN No metFORMIN HCl ER 500 HCl ER 500 HCl ER 500 MG MG MG Klor-Con Klor-Con No Mara 1 tablet C ommon M10 M10 18 [facility] - [facility] :00 [facility] Immunizations Ordered Immunization Filled Immunization Date Status Commen ts Source Name Name FLUZONE HIGH DOSE FLUZONE HIGH DOSE 2022-01-03 [facility]pleted [facility] OVER 65 08:38:00 - [facility] FLUZONE HIGH DOSE FLUZONE HIGH DOSE 2022-01-03 Completed [facility] OVER 65 OVER 65 08:38:00 - [facility] FLUZONE HIGH DOSE FLUZONE HIGH DOSE 2022-01-03 Completed [facility] OVER 65 OVER 65 08:38:00 - [facility] FLUZONE HIGH DOSE FLUZONE HIGH DOSE 2022-01-03 [facility]pleted [facility] OVER 65 OVER 65 08:38:00 - [facility] FLUZONE HIGH DOSE FLUZONE HIGH DOSE 2022-01-03 [facility]pleted [facility] OVER 65 OVER 65 08:38:00 - [facility] FLUZONE HIGH DOSE FLUZONE HIGH DOSE 2022-01-03 [facility] OVER 65 OVER 65 08:38:00 - [facility] FluAD FluAD 2021-01-15 Completed [facility] 08:19:00 - [facility] FluAD FluAD 2021-01-15 [facility] 08[facility]19:00 - [facility] FluAD FluAD 2021-01-15 Completed [facility] 08:19:00 - [facility] FluAD FluAD 2021-01-15 Completed [facility] 08:19:00 - [facility] FluAD FluAD 2021-01-15 Completed [facility] 08:19:00 - [facility] FluAD FluAD 2021-01-15 Completed [facility] 08:19:00 - [facility] FluAD FluAD 2021-01-15 Completed [facility] 08:19:00 - [facility] FluAD FluAD 2021-01-15 Completed [facility] 08:19:00 - [facility] FluAD FluAD 2021-01-15 Completed [facility] 08:19:00 - [facility] FluAD FluAD 2021-01-15 Completed [facility] 08:19:00 - [facility] FluAD FluAD 2021-01-15 Completed [facility] 08:19:00 - [facility] FluAD FluAD 2021-01-15 Completed [facility] 08:19:00 - [facility] FluAD FluAD 2021-01-15 Completed [facility] 08:19:00 - [facility] FluAD FluAD 2021-01-15 Completed [facility] 08:19:00 [facility] Prevnar 13 Prevnar 13 2018-02-11 Completed [facility] -Pneumonia Vaccine -Pneumonia Vaccine 14:29:00 [facility] Prevnar 13 Prevnar 13 2018-02-11 Completed [facility] -Pneumonia Vaccine -Pneumonia Vaccine 14:29:00 [facility] Prevnar 13 Prevnar 13 2018-02-11 Completed [facility] -Pneumonia Vaccine -Pneumonia Vaccine 14:29:00 [facility] Prevnar 13 Prevnar 13 2018-02-11 [facility]pleted [facility] -Pneumonia Vaccine -Pneumonia Vaccine 14:29:00 [facility] Prevnar 13 Prevnar 13 2018-02-11 Completed [facility] -Pneumonia Vaccine -Pneumonia Vaccine 14:29:00 [facility] Prevnar 13 Prevnar 13 2018-02-11 Completed [facility] -Pneumonia Vaccine -Pneumonia Vaccine 14:29:00 [facility] Prevnar 13 Prevnar 13 2018-02-11 Completed [facility] -Pneumonia Vaccine -Pneumonia Vaccine 14:29:00 [facility] Prevnar 13 Prevnar 13 2018-02-11 Completed [facility] -Pneumonia Vaccine -Pneumonia Vaccine 14:29:00 [facility] Prevnar 13 Prevnar 13 2018-02-11 Completed [facility] -Pneumonia Vaccine -Pneumonia Vaccine 14:29:00 [facility] Prevnar 13 Prevnar 13 2018-02-11 Completed [facility] -Pneumonia Vaccine -Pneumonia Vaccine 14:29:00 [facility] Prevnar 13 Prevnar 13 2018-02-11 Completed [facility] -Pneumonia Vaccine -Pneumonia Vaccine 14:29:00 [facility] Prevnar 13 Prevnar 13 2018-02-11 Completed [facility] -Pneumonia Vaccine -Pneumonia Vaccine 14:29:00 [facility] Prevnar 13 Prevnar 13 2018-02-11 Completed [facility] -Pneumonia Vaccine -Pneumonia Vaccine 14:29:00 [facility] Prevnar 13 Prevnar 13 2018-02-11 Completed [facility] -Pneumonia Vaccine -Pneumonia Vaccine 14:29:00 [facility] Prevnar 13 Prevnar 13 2018-02-11 Completed [facility] -Pneumonia Vaccine -Pneumonia Vaccine 14:29:00 [facility] Prevnar 13 Prevnar 13 2018-02-11 Completed [facility] -Pneumonia Vaccine -Pneumonia Vaccine 14:29:00 [facility] Vital Signs Vital Name Observation Time Observation Value Comments Source height 2022-04-10 09:10:00 61.5 [in_i] [facility] weight 2022-04-10 09:10:00 258.5 [lb_av] [facility] temperature 2022-04-10 09:10:00 97.3 [degF] [facility] bmi 2022-04-10 09:10:00 48.05 kg/m2 [facility] oximetry 2022-04-10 09:10:00 98 % [facility] respiratory rate 2022-04-10 09:10:00 18 /min Comm on [facility] blood pressure 2022-04-10 09:10:00 132 mm[Hg] [facility] - systolic [facility] blood pressure 2022-04-10 09:10:00 73 mm[Hg] [facility] - diastolic [facility] height 2022-03-22 08:40:00 61.5 [in_i] [facility] 2022-03-22 08:40:00 257.0 [lb_av] Common [facility] temperature 2022-03-22 08:40:00 97.3 [degF] Common [facility] bmi 2022-03-22 08:40:00 47.77 kg/m2 [facility] oximetry 2022-03-22 08:40:00 98 % Common S [facility] respiratory rate 2022-03-22 08:40:00 17 /min Comm on [facility] blood pressure 2022-03-22 08:40:00 138 mm[Hg] Common [facility] - systolic [facility] blood pressure 2022-03-22 08:40:00 64 mm[Hg] Common [facility] - diastolic [facility] height 2022-01-03 08:20:00 61.5 [in_i] Common [facility] weight 2022-01-03 08:20:00 255 [lb_av] [facility] bmi 2022-01-03 08:20:00 47.4 kg/m2 [facility] oximetry 2022-01-03 08:20:00 97 % [facility] respiratory rate 2022-01-03 08:20:00 18 /min Comm on [facility] blood pressure 2022-01-03 08:20:00 138 mm[Hg] Common [facility] - systolic [facility] blood pressure 2022-01-03 08:20:00 76 mm[Hg] Common [facility] - diastolic [facility] height 2021-10-05 09:40:00 63 [in_i] [facility] weight 2021-10-05 09:40:00 249.0 [lb_av] [facility] temperature 2021-10-05 09:40:00 97.3 [degF] [facility] bmi 2021-10-05 09:40:00 44.1 kg/m2 Common S [facility]irit [facility] oximetry 2021-10-05 09:40:00 96 % [facility] respiratory rate 2021-10-05 09:40:00 17 /min Comm on [facility] blood pressure 2021-10-05 09:40:00 135 mm[Hg] Common [facility] - systolic [facility] blood pressure 2021-10-05 09:40:00 74 mm[Hg] Common [facility] - diastolic [facility] height 2021-07-05 10:40:00 63 [in_i] [facility] weight 2021-07-05 10:40:00 252.0 [lb_av] [facility] temperature 2021-07-05 10:40:00 97.7 [degF] [facility] bmi 2021-07-05 10:40:00 44.63 kg/m2 [facility] S [facility] oximetry 2021-07-05 10:40:00 96 % [facility] respiratory rate 2021-07-05 10:40:00 16 /min Comm on [facility] blood pressure 2021-07-05 10:40:00 138 mm[Hg] Common [facility] - systolic [facility] blood pressure 2021-07-05 10:40:00 70 mm[Hg] Common [facility] - diastolic [facility] height 2021-05-24 10:00:00 63 [in_i] [facility] weight 2021-05-24 10:00:00 255 [lb_av] [facility] temperature 2021-05-24 10:00:00 96.9 [degF] [facility] bmi 2021-05-24 10:00:00 45.17 kg/m2 [facility] oximetry 2021-05-24 10:00:00 94 % [facility] respiratory rate 2021-05-24 10:00:00 23 /min Comm on [facility] blood pressure 2021-05-24 10:00:00 124 mm[Hg] Common [facility] - systolic [facility] blood pressure 2021-05-24 10:00:00 72 mm[Hg] Common [facility] - diastolic [facility] height 2021-03-22 09:00:00 63 [in_i] Common S [facility] weight 2021-03-22 09:00:00 251.6 [lb_av] [facility] temperature 2021-03-22 09:00:00 97.3 [degF] Common [facility] bmi 2021-03-22 09:00:00 44.56 kg/m2 [facility] oximetry 2021-03-22 09:00:00 97 % Common S [facility] respiratory rate 2021-03-22 09:00:00 17 /min Comm on [facility] blood pressure 2021-03-22 09:00:00 135 mm[Hg] Common [facility] - systolic [facility] blood pressure 2021-03-22 09:00:00 72 mm[Hg] Common [facility] diastolic [facility] height 2021-02-20 08:30:00 63 [in_i] [facility] weight 2021-02-20 08:30:00 250.8 [lb_av] [facility] temperature 2021-02-20 08:30:00 98.8 [degF] Common S [facility] bmi 2021-02-20 08:30:00 44.42 kg/m2 [facility] S [facility] oximetry 2021-02-20 08:30:00 95 % [facility] respiratory rate 2021-02-20 08:30:00 16 /min Comm on [facility] blood pressure 2021-02-20 08:30:00 133 mm[Hg] Common [facility] - systolic [facility] blood pressure 2021-02-20 08:30:00 62 mm[Hg] Common [facility] - diastolic [facility] Procedures This patient has no known procedures. Encounters Start End Encounter Admission Attending Care Care Encounter Source Date/Time Date/Time Type Type Clinicians Facility Department ID 2022-03-27 Outpatient [place], STLMLC STLMLC [id number] Common 15:58:00 Waldemar [id number] [facility] 2022-01-01 Outpatient [place], STLMLC STLMLC [id number] Common 13:19:00 Waldemar [facility] 2021-10-06 Outpatient [place], STLMLC STLMLC [id number] Common 10:00:00 Waldemar [facility] 2021-07-06 Outpatient [place], STLMLC STLMLC [id number] Common 09:43:00 Waldemar [facility] 2021-05-22 Outpatient [place], STLMLC STLMLC [id number] Common 13:21:01 Waldemar [facility] 2021-04-12 Outpatient [place], STLMLC STLMLC [id number] Common 14:31:59 Waldemar [facility] 2021-04-12 Outpatient [place], STLMLC STLMLC [id number] Common 14:31:05 Waldemar [facility] 2021-04-12 Outpatient [place], STLMLC STLMLC [id number] Common 13:56:41 Waldemar 10750 [facility] 2021-04-12 Outpatient [place], STLMLC STLMLC [id number] Common 13:22:53 Waldemar 03475 [facility] 2021-04-12 Outpatient [place], STLMLC STLMLC [id number] Common 13:11:40 Waldemar 11328 [facility] 2021-04-12 Outpatient [place], STLMLC STLMLC [id number] Common 13:00:42 Waldemar [id number] [facility] 2021-04-12 Outpatient [place], STLMLC STLMLC [id number] Common 12:36:38 Waldemar 36731 [facility] 2021-04-12 Outpatient [place], STLMLC STLMLC [id number] Common 12:36:29 Waldemar 07910 [facility] 2021-04-12 Outpatient [place], STLMLC STLMLC [id number] Common 12:35:38 Waldemar 01751 [facility] 2021-04-12 Outpatient [place], STLMLC STLMLC [id number] Common 12:33:51 Waldemar [id number] [facility] 2021-04-12 Outpatient [place], STLMLC STLMLC [id number] Common 12:26:57 Waldemar 66922 [facility] 2021-04-12 Outpatient STLMLC STLMLC [id number] Common 12:16:01 [id number] [facility] 2021-04-12 Outpatient Vivas, Kin STLMLC STLMLC [id number] Common 11:58:53 [id number] [facility] 2021-04-12 Outpatient [place], STLMLC STLMLC [id number] 11:13:28 Mara [id number] [facility] 2022-04-10 2022-04-10 OFFICE STLMLC STLMLC [id number] Co mmon 00:00:00 00:00:00 VISIT [facility] ESTAB PT - CHI LEVEL 4 [facility] 2022-03-30 2022-03-30 (TEL) STLMLC STLMLC [id number] Co mmon 00:00:00 00:00:00 [facility] 2022-03-22 2022-03-22 OFFICE STLMLC STLMLC [id number] Co mmon 00:00:00 00:00:00 VISIT [facility] ESTAB PT - CHI LEVEL 4 [facility] 2022-01-26 2022-01-26 (TEL) STLMLC STLMLC [id number] Co mmon 00:00:00 00:00:00 [facility] 2022-01-23 2022-01-23 (TEL) STLMLC STLMLC [id number] Co mmon 00:00:00 00:00:00 [facility] - [facility] 2022-01-03 2022-01-03 OFFICE STLMLC STLMLC [id number] Co mmon 00:00:00 00:00:00 [facility] EST[facility] PT - [facility] LEVEL 4 [facility] 2021-10-05 2021-10-05 OFFICE STLMLC STLMLC [id number] Co mmon 00:00:00 00:00:00 [facility] ESTAB PT - [facility] LEVEL 4 [facility] 2021 2021 (TEL) STLMLC STLMLC [id number] Co mmon 00:00:00 00:00:00 [facility] 2021-07-05 2021-07-05 OFFICE STLMLC STLMLC [id number] Co mmon 00:00:00 00:00:00 [facility] ESTAB PT - [facility] LEVEL 4 [facility] 2021-05-24 2021-05-24 SUB ANNUAL STLMLC STLMLC [id number] [facility] 00:00:00 00:00:00 [facility] WELLNESS - [facility]I VISIT [facility] 2021-05-08 2021-05-08 (TEL) STLMLC STLMLC [id number] Co mmon 00:00:00 00:00:00 [facility] 2021-03-22 2021-03-22 OFFICE STLMLC STLMLC [id number] Co mmon 00:00:00 00:00:00 [facility] EST[facility] PT - [facility] LEVEL 4 [facility] 2021-03-08 2021-03-08 (TEL) STLMLC STLMLC [id number] Co mmon 00:00:00 00:00:00 [facility] 2021-02-20 2021-02-20 OFFICE STLMLC STLMLC [id number] Co mmon 00:00:00 00:00:00 [facility] ESTAB PT - [facility] LEVEL 4 [facility] 2021-02-13 2021-02-13 (TEL) STLMLC STLMLC [id number] Co mmon 00:00:00 00:00:00 [facility] 2021-01-12 2021-01-12 (TEL) STLMLC STLMLC [id number] Co mmon 00:00:00 00:00:00 [facility] 2020-09-21 2020-09-21 Outpatient STLMLC STLMLC [id number] Common 00:00:00 00:00:00 [facility] 2020-08-25 2020-08-25 Outpatient STLMLC STLMLC [id number] [facility] 00:00:00 00:00:00 [facility] 2020-07-22 2020-07-22 Outpatient STLMLC STLMLC [id number] [facility] 00:00:00 00:00:00 [facility] 2020-07-22 2020-07-22 Outpatient STLMLC STLMLC [id number] [facility] 00:00:00 00:00:00 [facility] 2020-07-19 2020-07-19 Outpatient STLMLC STLMLC [id number] [facility] 00:00:00 00:00:00 [facility] 2020-05-20 2020-05-20 Outpatient STLMLC STLMLC [id number] [facility] 00:00:00 00:00:00 [facility] 2020-05-20 2020-05-20 Outpatient STLMLC STLMLC [id number] [facility] 00:00:00 00:00:00 [facility] 2020-05-20 2020-05-20 Outpatient STLMLC STLMLC [id number] [facility] 00:00:00 00:00:00 [facility] 2020-05-16 2020-05-16 Outpatient STLMLC STLMLC [id number] Common 00:00:00 00:00:00 [facility] 2020-04-18 2020-04-18 Outpatient STLMLC STLMLC [id number] Common 00:00:00 00:00:00 [facility] 2020-03-09 2020-03-09 Outpatient STLMLC STLMLC [id number] Common 00:00:00 00:00:00 [facility] 2020-02-29 2020-02-29 Outpatient STLMLC STLMLC [id number] Common 00:00:00 00:00:00 [facility] 2020-01-18 2020-01-18 Outpatient STLMLC STLMLC [id number] [facility] 00:00:00 00:00:00 [facility] 2020-01-15 2020-01-15 Outpatient STLMLC STLMLC [id number] [facility] 00:00:00 00:00:00 [facility] 2019-10-08 2019-10-08 [id number] [facility] 01:29:00 01:29:[address] [facility] 2019-10-07 2019-10-07 [facility] [id number] Common 16:20:00 16:20:[address] [facility] 2019-09-23 2019-09-23 [facility] [id number] Common 09:21:00 09:21:[address] [facility] 2019-09-11 2019-09-11 [facility] [id number] Common 09:13:00 09:13:[address] [facility] 2019-07-21 2019-07-21 [facility] [id number] Common 15:40:00 15:40:[address] [facility] 2019-06-21 2019-06-21 [facility] [id number] Common 19:50:00 19:50:[address] [facility] 2019-06-01 2019-06-01 [facility] [id number] Common 08:00:00 08:00:[address] [facility] 2019-05-19 2019-05-19 [facility] [id number] Common 09:28:00 09:28:[address] [facility] 2019-05-19 2019-05-19 [facility] [id number] Common 09:27:00 09:27:[address] [facility] 2019-05-06 2019-05-06 [facility] [id number] Common 18:38:00 18:38:[address] [facility] 2019-05-05 2019-05-05 [facility] [id number] Common 16:12:00 16:12:[address] [facility] 2019-04-03 2019-04-03 [facility] [id number] Common 09:11:00 09:11:[address] [facility] 2019-03-02 2019-03-02 [facility] [id number] Common 11:30:00 11:30:[address] [facility] 2019-02-16 2019-02-16 [facility] [id number] Common 08:00:00 08:00:[address] [facility] 2019-02-03 2019-02-03 [facility] [id number] Common 16:59:00 16:59:[address] [facility] 2019-01-06 2019-01-06 [facility] [id number] Common 13:15:00 13:15:[address] [facility] 2018-12-09 2018-12-09 [facility] [id number] [facility] 14:30:00 14:30:00 [facility] 2018-10-23 2018-10-23 [facility] [id number] Common 13:30:00 13:30:00 [facility] 2018-10-02 2018-10-02 [facility] [id number] Common 08:00:00 08:00:[address] [facility] 2018-09-03 2018-09-03 [facility] [id number] Common 14:15:00 14:15:[address] [facility] 2018-07-07 2018-07-07 [id number] Common 08:30:00 08:30:[address] [facility] 2018-06-09 2018-06-09 [facility] [id number] Common 09:00:00 09:00:00 [facility] 2018-05-27 2018-05-27 [facility] [id number] Common 13:30:00 13:30:[address] [facility] 2018-04-28 2018-04-28 [facility] [id number] Common 08:00:00 08:00:00 t [facility] 2018-04-09 2018-04-09 [facility] [id number] Common 08:45:00 08:45:[address] [facility] 2018-02-24 2018-02-24 [facility] [id number] Common 10:45:00 10:45:[address] [facility] 2017-07-03 2017-07-03 [facility] [id number] Common 13:00:00 13:00:[address] [facility] 2017-06-05 2017-06-05 [facility] [id number] Common 08:45:00 08:45:[address] [facility] Results Test Description Test Time Test Comments Results Result Comments Source Hematopath Consultation, Smear 2021-09-28 00:00:00 Test Item Value Reference Range Interpretation Comme nts PLTs (test code = 90238-4) Comments/Recommendations (test code = 37990-4) Pathologist (test code = 97178-1) Hemoglobin [id number] 00:00:00 Test Item Value Reference Range Interpretation Comments Hemoglobin A1c (test 6.1 % See_Comment H [Autom ated message] The code = 4548-4) system which generated this result tra nsmitted reference range : 4.8-5.6 %. The referenc e range was not used to interpret this result as normal/abnormal . Comp. Metabolic Panel (14) ([facility])2021-09-28 00:00:00 Test Item Value Reference Range Interpretation Comments Glucose (test code = 114 mg/dL See_Comment H [Autom ated message] 1945-7) The system [employer] generated this result transmitted ref erence range: 65-99 mg /dL. The reference r alma was not used to interpret this result as normal/abnor mal. BUN (test code = 22 mg/dL See_Comment [Automated message] 3094-0) The system [employer] generated this result transmitted ref erence range: 8-27 mg/ dL. The reference r alma was not used to interpret this result as normal/abnor mal. Creatinine (test code 0.83 mg/dL See_Comment [Auto mated message] = 2160-0) The system [employer] generated this result transmitted ref erence range: 0.57-1.0 0 mg/dL. The refe rence range was not u sed to interpret this result as normal/abnor mal. BUN/Creatinine Ratio 27 12-28 (test code = 3097-3) Sodium (test code = 139 mmol/L See_Comment [Automa redd message] 5019-2) The system [employer] generated this result transmitted ref erence range: 134-144 mmol/L. The ref erence range was not u sed to interpret this result as normal/abnor mal. Potassium (test code = 5.1 mmol/L See_Comment [Aut omated message] 3533-3) The system [employer] generated this result transmitted ref erence range: 3.5-5.2 mmol/L. The ref erence range was not u sed to interpret this result as normal/abnor mal. Chloride (test code = 100 mmol/L See_Comment [Auto mated message] ) The system [facility] generated this result transmitted ref erence range: 96-106 m mol/L. The reference r alma was not used to interpret this result as normal/abnor mal. Carbon Dioxide, Total 24 mmol/L See_Comment [Auto mated message] (test code = 2027-11) The [facility] tem which generated this result transmitted ref erence range: 20-29 mm ol/L. The reference r alma was not used to interpret this result as normal/abnor mal. Calcium (test code = 10.0 mg/dL See_Comment [Autom ated message] 92417-4) The system [facility] generated this result transmitted ref erence range: 8.7-10.3 mg/dL. The refe rence range was not u sed to interpret this result as normal/abnor mal. Protein, Total (test 7.2 g/dL See_Comment [Autom ated message] code = 2885-2) The system [facility] generated this result transmitted ref erence range: 6.0-8.5 g/dL. The reference r alma was not used to interpret this result as normal/abnor mal. Albumin (test code = 4.5 g/dL See_Comment [Autom ated message] 1751-7) The system [facility] generated this result transmitted ref erence range: 3.7-4.7 g/dL. The reference r alma was not used to interpret this result as normal/abnor mal. Globulin, Total (test 2.7 g/dL See_Comment [Auto mated message] code = 44725-3) The system [facility] generated this result transmitted ref erence range: 1.5-4.5 g/dL. The reference r alma was not used to interpret this result as normal/abnor mal. A/G Ratio (test code = 1.7 1.2-2.2 1759-0) Bilirubin, Total (test 0.3 mg/dL See_Comment [Aut omated message] code = 1974-2) The system wh ich generated this result transmitted ref erence range: 0.0-1.2 mg/dL. The reference r alma was not used to interpret this result as normal/abnor mal. Alkaline Phosphatase 91 IU/L See_Comment [Autom ated message] (test code = 6768-6) The s tem which generated this result transmitted ref erence range: 44-121 I U/L. The reference r alma was not used to interpret this result as normal/abnor mal. AST (SGOT) (test code 30 IU/L See_Comment [Auto mated message] = 1920-8) The system [employer] generated this result transmitted ref erence range: 0-40 IU/ L. The reference range was not used to int erpret this result as normal/abnormal . ALT (SGPT) (test code 29 IU/L See_Comment [Auto mated message] = 1742-6) The system [employer] generated this result transmitted ref erence range: 0-32 IU/ L. The reference range was not used to int erpret this result as normal/abnormal . Vitamin D, [id number] 00:00:00 Test Item Value Reference Range Interpretation Comments Vitamin D, 29.9 ng/mL See_Comment L [Automated mes redd] 25-Hydroxy (test The system which code = 1988-05) generated thi s result transmitted ref erence range: 30.0-100 .0 ng/mL. The refe rence range was not u sed to interpret this result as normal/abnor mal.
[2022-04-24] MEDS ORDERED: IBUPROFEN 400 MG TAB ONE (11:33)
--- NOTE | 2022-04-24 12:18 | RAD REPORT ---
EXAM DESCRIPTION: RAD - Chest Single View - 04/24/2022 12:12 pm CLINICAL HISTORY: TRAUMA, shortness of breath COMPARISON: None TECHNIQUE: AP portable chest image was obtained 04/24/2022 12:12 pm . FINDINGS: Lung volumes are low. Large body habitus and portable technique further limit the examinat ion. No focal lung parenchymal process. Interstitial markings are prominent with mild vascular engorg ement. Cardiomegaly is present. Trachea is midline. No pneumothorax is identifiable. Dislocation of t he right humeral head is present. This is medial and inferior to the glenoid typical for anterior dis location. Rib detail is very limited. No acute aortic findings suspected. IMPRESSION: Anterior dislocation right humeral head. Chest examination is significantly limited. A mild failure or volume overload pattern is suspected.
--- NOTE | 2022-04-24 13:15 | RAD REPORT ---
EXAM DESCRIPTION: RAD - Humerus Right - 04/24/2022 12:12 pm CLINICAL HISTORY: PAIN, trip and fall COMPARISON: Chest Single View dated 04/24/2022; Shoulder Right 2 View dated 04/24/2022 FINDINGS: Detail is limited by film technique and body habitus. Anterior dislocation of the humeral head is present. No fracture changes are identifiable. No foreign body or other soft tissue abnormali ty. IMPRESSION: Anterior dislocation of the right humeral head.
[2022-04-24] MEDS ORDERED: ONDANSETRON 4 MG/2 ML VIAL ONE (13:23)
[2022-04-24] MEDS ORDERED: ETOMIDATE 20 MG/10 ML VIAL IV ONE (13:24)
--- NOTE | 2022-04-24 13:31 | RAD REPORT ---
EXAM DESCRIPTION: RAD - Shoulder Right 2 View - 04/24/2022 1:23 pm CLINICAL HISTORY: SMASH INJURY COMPARISON: No comparisons FINDINGS: Subcoracoid anterior dislocation of humeral head is suspected.
--- NOTE | 2022-04-24 13:59 | EDPHYS ---
Physician Documentation [facility] Name: Hortencia Freeman Age: 76 yrs Sex: Female : 1945 Arrival Date: 04/24/2022 Time: 11:25 Bed 7 Private MD: ED Physician Ilia Gillette HPI: 04/24 11:36 This 76 yrs old Female presents to ER via EMS with complaints of right arm sp3 pain. 11:36 76-year-old female with history of diabetes and hypertension presents with mechanical sp3 ground-level fall with injury to the right humerus area and shoulder. He denies loss of consciousness or second injury. No other injury reported. No focal neurodeficits or changes in vision noted. Patient denies all other review of systems including fever, chest pain, back pain, abdominal pain, syncope, near syncope, or any other symptoms. EMS note reviewed and discussed with EMS team.. Historical: - Allergies: 11:31 No Known Allergies; jl7 - PMHx: 11:31 acid reflux; Diabetes - NIDDM; Hypertension; jl7 - PSHx: 11:31 Appendectomy; jl7 - Immunization history:: Client reports receiving the 2nd dose of the Covid vaccine. - Social history:: Smoking status: Patient denies any tobacco usage or history of. ROS: 11:37 Constitutional: Negative for fever, chills, and weight loss, Eyes: Negative for injury, sp3 pain, redness, and discharge, ENT: Negative for injury, pain, and discharge, Neck: Negative for injury, pain, and swelling, Cardiovascular: Negative for chest pain, palpitations, and edema, Respiratory: Negative for shortness of breath, cough, wheezing, and pleuritic chest pain, Abdomen/GI: Negative for abdominal pain, nausea, vomiting, diarrhea, and constipation, Back: Negative for injury and pain, Skin: Negative for injury, rash, and discoloration, Neuro: Negative for headache, weakness, numbness, tingling, and seizure, Psych: Negative for depression, anxiety, suicide ideation, homicidal ideation, and hallucinations, Allergy/Immunology: Negative for hives, rash, and allergies, Endocrine: Negative for neck swelling, polydipsia, polyuria, polyphagia, and marked weight changes. 11:37 All other systems are negative. Exam: 11:37 Constitutional: This is a well developed, well nourished patient who is awake, alert, sp3 and in no acute distress. Head/Face: Normocephalic, atraumatic. Eyes: Pupils equal round and reactive to light, extra-ocular motions intact. Lids and lashes normal. Conjunctiva and sclera are non-icteric and not injected. Cornea within normal limits. Periorbital areas with no swelling, redness, or edema. ENT: Nares patent. No nasal discharge, no septal abnormalities noted. External auditory canals are clear. Oropharynx with no redness, swelling, or masses, exudates, or evidence of obstruction, uvula midline. Mucous membranes moist. Neck: Trachea midline, no thyromegaly or masses palpated, and no cervical lymphadenopathy. Supple, full range of motion without nuchal rigidity, or vertebral point tenderness. No Meningismus. Chest/axilla: Normal chest wall appearance and motion. Nontender with no deformity. No lesions are appreciated. Cardiovascular: Regular rate and rhythm with a normal S1 and S2. No gallops, murmurs, or rubs. Normal PMI, no JVD. No pulse deficits. Respiratory: Lungs have equal breath sounds bilaterally, clear to auscultation and percussion. No rales, rhonchi or wheezes noted. No increased work of breathing, no retractions or nasal flaring. Abdomen/GI: Soft, non-tender, with normal bowel sounds. No distension or tympany. No guarding or rebound. No evidence of tenderness throughout. Back: No spinal tenderness. No costovertebral tenderness. Full range of motion. Skin: Warm, dry with normal turgor. Normal color with no rashes, no lesions, and no evidence of cellulitis. Neuro: Awake and alert, GCS 15, oriented to person, place, time, and situation. Cranial nerves II-XII grossly intact. Motor strength 5/5 in all extremities. Sensory grossly intact. Cerebellar exam normal. Normal gait. Psych: Awake, alert, with orientation to person, place and time. Behavior, mood, and affect are within normal limits. 11:37 Musculoskeletal/extremity: Right humerus area tender to palpation without gross abnormality. Distal neurovascular exam is normal.. Vital Signs: 11:29 BP 140 / 72; Pulse 70; Resp 15; Temp 97.8; Pulse Ox 96% on R/A; Weight 119 kg (M); jl7 Height 5 ft. 2 in. (157.48 cm); Pain 7/10; 12:00 BP 141 / 68; Pulse 66; Resp 18; Pulse Ox 95% ; ko1 12:17 BP 135 / 62; Pulse 64; Resp 18; Pulse Ox 94% ; ko1 11:29 Body Mass Index 47.98 (119.00 kg, 157.48 cm) jl7 MDM: 11:25 Patient medically screened. sp3 11:38 Data reviewed: vital signs, nurses notes, EMS record. ED course: 76-year-old female sp3 with mechanical ground-level fall with right upper arm pain. We will evaluate with imaging chest x-ray and right humerus x-ray. P.o. ibuprofen as needed for pain control. Suspecting any other injury including head and C-spine. Likely discharge home pending imaging and treatment.. 13:55 ED course: Right shoulder dislocation noted on shoulder x-ray. Patient was consented sp3 for moderate sedation using etomidate. All risks were explained and patient verbalized understanding and signed paperwork. She was then placed on 2 L nasal cannula oxygen, shelter monitor I was present in the room with 2 RN nurses. 10 mg of etomidate IV were given (initially 15 was ordered but only 10 was given) at which point patient achieved moderate sedation and using lateral rotation technique patient's right shoulder was reduced with palpable return to socket. I believe patient's shoulder has a high risk of the dislocating given the laxity that was present. Sling and swath was applied and necessity for follow-up was with the patient. The patient shoulder dislocates again, she was told to return to the ED immediately. Distal neurovascular exam post reduction was normal.. 04/24 11:26 Order name: Humerus Right XRAY; Complete Time: 14:20 sp3 04/24 11:26 Order name: CXR XRAY; Complete Time: 14:20 sp3 04/24 12:18 Order name: Shoulder Right (2 View) XRAY; Complete Time: 14:20 sp3 04/24 13:51 Order name: Shoulder 1 View; Complete Time: 14:20 EDMS 04/24 13:21 Order name: Misc. Order; Complete Time: 13:53 sp3 04/24 13:21 Order name: Monitor; Complete Time: 13:33 sp3 04/24 13:21 Order name: Oxygen Per Protocol; Complete Time: 13:33 sp3 Administered Medications: 11:31 Drug: Ibuprofen 800 mg Route: PO; ko1 13:33 Drug: Zofran (Ondansetron) 4 mg Route: IVP; Site: left antecubital; ko1 13:53 Drug: Etomidate 10 mg Route: IVP; Site: left forearm; ko1 Disposition Summary: 04/24/22 13:58 Discharge Ordered Location: Home sp3 Condition: Stable sp3 Diagnosis - Shoulder dislocation, moderate sedation, fall mechanical sp3 Followup: sp3 - With: Todd Cleveland MD - When: Upon discharge from the Emergency Department - Reason: Recheck today's complaints, Re-evaluation by your physician Discharge Instructions: - Discharge Summary Sheet sp3 - Shoulder Dislocation sp3 Forms: - Medication Reconciliation Form sp3 - Thank You Letter sp3 - Antibiotic Education sp3 - Prescription Opioid Use sp3 Prescriptions: - Diclofenac Sodium 75 mg Oral Tablet Sustained Release - take 1 tablet by ORAL route 2 times per day; 30 tablet; Refills: 0, Product sp3 Selection Permitted Signatures: Dispatcher [employer] Bahman Grant RN RN jl7 Ilia Gillette MD MD sp3 Eli Aguayo RN RN ko1
--- NOTE | 2022-04-24 13:59 | ER ---
Nurse's Notes [facility] Name: Hortencia Freeman Age: 76 yrs Sex: Female : 1945 Arrival Date: 04/24/2022 Time: 11:25 Bed 7 Private MD: Diagnosis: Shoulder dislocation, moderate sedation, fall mechanical Presentation: 04/24 11:29 Chief complaint: EMS states: Tripped and fell, reporting right upper arm pain with jl7 movement, denies LOC, did not hit head, denies blood thinners. Coronavirus screen: At this time, the client does not indicate any symptoms associated with coronavirus-19. Ebola Screen: No symptoms or risks identified at this time. Initial Sepsis Screen: Does the patient meet any 2 criteria? No. Patient's initial sepsis screen is negative. Does the patient have a suspected source of infection? No. Patient's initial sepsis screen is negative. Risk Assessment: Do you want to hurt yourself or someone else? Patient reports no desire to harm self or others. Onset of symptoms was April 24, 2022. 11:29 Method Of Arrival: EMS: [facility] 7 11:29 Acuity: PROMISE 3 jl7 Triage Assessment: 11:31 General: Appears in no apparent distress. uncomfortable, Behavior is calm, cooperative, jl7 appropriate for age. Pain: Complains of pain in right bicep Pain currently is 7 out of 10 on a pain scale. Neuro: Level of Consciousness is awake, alert, obeys commands, Oriented to person, place, time, situation. Cardiovascular: Patient's skin is warm and dry. Respiratory: Airway is patent Respiratory effort is even, unlabored, Respiratory pattern is regular, symmetrical. Derm: Skin is pink, warm \T\ dry. Musculoskeletal: Tenderness present in lateral aspect of right upper arm. Historical: - Allergies: 11:31 No Known Allergies; jl7 - PMHx: 11:31 acid reflux; Diabetes - NIDDM; Hypertension; jl7 - PSHx: 11:31 Appendectomy; jl7 - Immunization history:: Client reports receiving the 2nd dose of the Covid vaccine. - Social history:: Smoking status: Patient denies any tobacco usage or history of. Screenin:04 [facility] ED Fall Risk Assessment (Adult) History of falling in the last 3 months, ko1 including since admission Yes- single mechanical fall (1 pt) Confusion or Disorientation No (0 pts) Intoxicated or Sedated No (0 pts) Impaired Gait No (0 pts) Mobility Assist Device Used No (0 pt) Altered Elimination No (0 pt) Score/Fall Risk Level 0 - 2 = Low Risk Oriented to surroundings, Maintained a safe environment, Educated pt \T\ family on fall prevention, incl call for assistance when getting out of bed, Assessed \T\ reinforced patient's understanding of fall precautions, Provided non-skid footwear, Hourly rounding (assess needs \T\ fall precautionary measures) done, Used ambulatory aids as needed (educated on \T\ assisted with), Used gait belt as appropriate. Abuse screen: Denies threats or abuse. Denies injuries from another. Nutritional screening: No deficits noted. Tuberculosis screening: No symptoms or risk factors identified. Assessment: 11:58 General: Appears distressed, uncomfortable. Pain: Complains of pain in right arm and ko1 right bicep. Vital Signs: 11:29 BP 140 / 72; Pulse 70; Resp 15; Temp 97.8; Pulse Ox 96% on R/A; Weight 119 kg (M); jl7 Height 5 ft. 2 in. (157.48 cm); Pain 7/10; 12:00 BP 141 / 68; Pulse 66; Resp 18; Pulse Ox 95% ; ko1 12:17 BP 135 / 62; Pulse 64; Resp 18; Pulse Ox 94% ; ko1 11:29 Body Mass Index 47.98 (119.00 kg, 157.48 cm) jl7 ED Course: 11:25 Patient arrived in ED. sp3 11:25 Ilia Gillette MD is Attending Physician. sp3 11:27 Eli Aguayo, DONNA is Primary Nurse. ko1 11:30 Triage completed. jl7 11:31 Arm band placed on right wrist. jl7 12:04 Patient has correct armband on for positive identification. Placed in gown. Bed in low ko1 position. Call light in reach. Client placed on continuous cardiac and pulse oximetry monitoring. NIBP monitoring applied. campus monitor on. 12:14 Humerus Right XRAY In Process Unspecified. EDMS 12:14 CXR XRAY In Process Unspecified. EDMS 13:00 Inserted saline lock: 20 gauge in left forearm, using aseptic technique. ko1 13:25 Shoulder Right (2 View) XRAY In Process Unspecified. EDMS 13:54 Shoulder 1 View In Process Unspecified. EDMS 13:58 Todd Cleveland MD is Referral Physician. sp3 14:38 Assist provider with reduction of right shoulder using manipulation, Set up for ko1 procedure. Performed by Ilia Gillette MD Immobilized with sling, Patient tolerated well. 14:40 IV discontinued, intact, bleeding controlled, No redness/swelling at site. Pressure ko1 dressing applied. Administered Medications: 11:31 Drug: Ibuprofen 800 mg Route: PO; ko1 13:33 Drug: Zofran (Ondansetron) 4 mg Route: IVP; Site: left antecubital; ko1 13:53 Drug: Etomidate 10 mg Route: IVP; Site: left forearm; ko1 Medication: 14:38 VIS not applicable for this client. ko1 Outcome: 13:58 Discharge ordered by MD. sp3 14:40 Discharged to home via wheelchair, with family. ko1 14:40 Condition: stable 14:40 Discharge instructions given to patient, family, Instructed on discharge instructions, follow up and referral plans. medication usage, Demonstrated understanding of instructions, follow-up care, medications, Prescriptions given X 1. 14:40 Patient left the ED. ko1 Signatures: Dispatcher [employer] Bahman Grant, DONNA RN jl7 Ilia Gillette MD MD sp3 Eli Aguayo RN RN ko1
--- NOTE | 2022-04-24 14:17 | RAD REPORT ---
EXAM DESCRIPTION: RAD - Shoulder 1 View - 04/24/2022 1:52 pm CLINICAL HISTORY: RIGHT POST REDUCTION COMPARISON: No comparisons FINDINGS: Previously noted right shoulder dislocation has been reduced. The bones are quite osteopen ic, limiting fine detail.
[2022-04-24 14:57] VITALS: TEMP 97.8
[2022-04-24 15:00] VITALS: BP 135/62; O2SAT 94
== END 2022-04-24 14:40 | disposition home or self-care (01) ==
LOC: ER 11:21
PROC: 0RSJXZZ Reposition Right Shoulder Joint, External Approach (ICD-10-PCS; principal; 2022-04-24)
DX: S43.004A Unspecified dislocation of right shoulder joint, initial encounter (principal); W18.30XA Fall on same level, unspecified, initial encounter; E11.9 Type 2 diabetes mellitus without complications; I10 Essential (primary) hypertension
CPT/HCPCS: 71045; 73020; 73060; 73030; 23655; J2405